=== PATIENT | female | born 1985 | race Caucasian/White ===

== ENCOUNTER 2021-07-11 12:24 | Outpatient (CLI) | payer OTHER ==
[2021-07-11 14:18] LABS: HEMOGLOBIN 11.6 gm/dl (12.3-15.3); RED BLOOD COUNT 4.03 M/UL (4.00-5.10); WHITE BLOOD COUNT 10.8 K/UL (4.5-11.0)
[2021-07-11 14:39] LABS: BUN/CREATININE RATIO 14 (0-10)
[2021-07-11] MEDS ORDERED: TRANDATE 100 M100 MG PO (14:42)
== END 2021-07-11 14:50 | disposition home or self-care (01) ==
LOC: GENOP 12:24
PROVIDERS: Obstetrics & Gynecology
DX: O13.3 Gestational [pregnancy-induced] hypertension without significant proteinuria, third trimester (principal); O34.219 Maternal care for unspecified type scar from previous cesarean delivery; Z3A.34 34 weeks gestation of pregnancy
CPT/HCPCS: 80053; 82570; 84156; 84550; 85025; G0463

== ENCOUNTER 2021-07-26 11:57 | Inpatient (IN) | payer OTHER ==
[~2021-07-26] VITALS: Ht 152.4 cm; Wt 94.8 kg
[~2021-07-26 11:57] MED LIST: TRANDATE 100 M100 MG PO
[2021-07-26 12:23] LABS: HEMOGLOBIN 11.9 gm/dl (12.3-15.3); RED BLOOD COUNT 4.23 M/UL (4.00-5.10); WHITE BLOOD COUNT 9.2 K/UL (4.5-11.0)
[2021-07-26 12:53] LABS: BUN/CREATININE RATIO 10 (0-10)
[2021-07-26] MEDS ORDERED: TRANDATE 100 M100 MG PO (13:10)
[2021-07-26] MEDS ORDERED: TYLENOL325 M1 PO (13:11)
[2021-07-26] MEDS ORDERED: COLACE100 MG PO ×2 (13:11→18:37)
[2021-07-26] MEDS ORDERED: PRENATAL VITAM1 EAC5 PO (13:13)
[2021-07-26] MEDS ORDERED: PERCOCET 5/325 T1 EA PO (18:37)
[2021-07-26] MEDS ORDERED: HEMOCYTE324 MG PO (18:37)
[2021-07-26] MEDS ORDERED: IBUPROFEN800 MG PO (18:37)
[2021-07-27 04:12] LABS: HEMOGLOBIN 10.4 gm/dl (12.3-15.3)
== END 2021-07-27 20:19 | disposition home or self-care (01) | DRG 786 ==
LOC: OB 11:57 → CDU 20:45 → OB 20:46
PROVIDERS: ADMIT Obstetrics & Gynecology
PROC: 10D00Z1 Extraction of Products of Conception, Low, Open Approach (ICD-10-PCS; 2021-07-26)
PROC: 3E0234Z Introduction of Serum, Toxoid and Vaccine into Muscle, Percutaneous Approach (ICD-10-PCS; principal; 2021-07-26 14:08)
DX: O10.92 Unspecified pre-existing hypertension complicating childbirth (principal); O45.93 Premature separation of placenta, unspecified, third trimester; O44.03 Complete placenta previa NOS or without hemorrhage, third trimester; N73.6 Female pelvic peritoneal adhesions (postinfective); Z37.0 Single live birth; Z3A.37 37 weeks gestation of pregnancy; Z88.0 Allergy status to penicillin; Z82.49 Family history of ischemic heart disease and other diseases of the circulatory system; Z80.3 Family history of malignant neoplasm of breast; Z23 Encounter for immunization
CPT/HCPCS: 36415; 80053; 81001; 85014; 85018; 85025; 90707; 90715; C9113; J1170; J1580; J1885; J2250; J2370; J2405; J2795; J3010; J7120